=== PATIENT | male | born 1995 | race Caucasian/White ===

== ENCOUNTER 2018-05-07 15:26 | Emergency (ER) | payer MEDICAID | END 2018-05-07 19:04 | disposition home or self-care (01) | LOC: FTE 15:26 | DX: S80.812A Abrasion, left lower leg, initial encounter (principal); V03.00XA Pedestrian on foot injured in collision with car, pick-up truck or van in nontraffic accident, initial encounter | CPT/HCPCS: 29515; 73590; 73610; 73630-LT; 99283-25 ==